=== PATIENT | female | born 1970 | race American Indian/Alaskan Native ===

== ENCOUNTER 2016-10-26 03:50 | Emergency (ER) | payer SELFPAY ==
[2016-10-26] MEDS ORDERED: PEPCID ONE (04:06)
[2016-10-26] MEDS ORDERED: BENADRYL ONE (04:06)
[2016-10-26] MEDS ORDERED: PEPCID PO ONE (04:35)
[2016-10-26] MEDS ORDERED: BENADRYL IM ONE (04:35)
--- NOTE | 2016-10-26 05:41 | Emergency Department Report ---
HPI - General Chief Complaint: Allergic Reaction Time Seen by Provider: 10/26/16 05:17 - HPI HPI: 46-year-old female presents today with a rash to her face and upper extremities and trunk. 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 Positive first tongue swelling at the time. Denies difficulty in breathing or difficulty swallowing. Positive for pruritus and nausea. Also complaining of back pain 4-5 days. Denies injury or trauma. Tried Aleve without relief. Describes her pain as 10 out of 10 constant pain that is worse with movement. Denies bowel or bladder incontinence. Positive for radiation of pain to right leg. Denies numbness, weakness, paresthesias. Denies fever, chills, vomiting, chest pain, shortness of breath, abdominal pain. ED Past Medical Hx - Past Medical History Previous Medical History?: Yes Hx Hypertension: Yes - Surgical History Past Surgical History?: No - Social History Smoking Status: Never Smoker Substance Use Type: Alcohol - Medications Home Medications: Home Medications Medication Instructions Recorded Confirmed Last Taken Type Amoxicillin [Trimox CAP] 500 mg PO Q8H #30 capsule 09/26/13 Unknown Rx Lisinopril [Zestril TAB] 5 mg PO DAILY 09/26/13 09/26/13 09/25/13 History Lisinopril/Hydrochlorothiazide 1 each PO QDAY #30 tablet 09/26/13 Unknown Rx [Zestoretic 10-12.5 mg] Promethazine /Codeine 5 ml PO Q6H PRN #120 ml 09/26/13 Unknown Rx [Phenergan/Codeine 6.25-10 mg/5 ml] predniSONE [Deltasone] 20 mg PO TID #15 tablet 09/26/13 Unknown Rx Ciprofloxacin HCl [Cipro] 500 mg PO Q12H #14 tab 02/28/14 Unknown Rx Lisinopril/Hydrochlorothiazide 1 tab PO QDAY #30 tablet 02/28/14 Unknown Rx [Zestoretic 20-25 mg] Phenazopyridine HCl [Pyridium] 100 mg PO Q8H #9 tablet 02/28/14 Unknown Rx Albuterol Sulfate [Ventolin HFA] 2 puff IH Q4H PRN #1 hfa.aer.ad 07/20/14 Unknown Rx Ciprofloxacin HCl [Cipro] 500 mg PO Q12H #20 tab 07/20/14 Unknown Rx Fluticasone Propionate [Flonase] 1 spray NS Q12H #120 spray.susp 07/20/14 Unknown Rx Promethazine /Codeine 5 ml PO Q6H PRN #120 ml 07/20/14 Unknown Rx [Phenergan/Codeine 6.25-10 mg/5 ml] predniSONE [Deltasone] 20 mg PO TID #15 tab 07/20/14 Unknown Rx Cyclobenzaprine [Flexeril] 10 mg PO TID PRN #14 tablet 10/26/16 Unknown Rx Diphenhydramine HCl [Benadryl 25 mg PO Q6H #20 tablet 10/26/16 Unknown Rx Allergy TAB] Ibuprofen [Motrin 600 MG tab] 600 mg PO Q8H PRN #30 tablet 10/26/16 Unknown Rx Prednisone [predniSONE 5 mg (6-Day 5 mg PO .TAPER #1 tab.ds.pk 10/26/16 Unknown Rx Pack, 21 Tabs)] ED Review of Systems ROS: Stated complaint: ALLERGIC REACTION Other details as noted in HPI Constitutional: denies: chills, fever, malaise Eyes: denies: eye pain ENT: denies: ear pain, throat pain, congestion Respiratory: denies: cough, shortness of breath, wheezing Cardiovascular: denies: chest pain, palpitations Endocrine: no symptoms reported Gastrointestinal: nausea. denies: abdominal pain, vomiting Musculoskeletal: back pain Skin: rash, pruritus Neurological: denies: headache, weakness Physical Exam - Physical Exam Vital Signs: Vital Signs 10/26/16 04:01 Temperature 98.4 F Pulse Rate 106 H Respiratory 22 Rate Blood Pressure 154/98 O2 Sat by Pulse 100 Oximetry Physical Exam: GENERAL: The patient is well-developed and well-nourished. Patient is in NAD. SKIN: Erythematous, blanching, pruritic, wheal like rash noted over neck, trunk and upper extremities. HEAD: Normocephalic. Atraumatic. EYES: PERRL. NOSE: Normal nasal mucosa with no nasal discharge. THROAT: No erythema, swelling or exudates. NECK: Supple, nontender, without lymphadenopathy. No meningitic signs are noted. CHEST/LUNGS: Clear to auscultation throughout. HEART/CARDIOVASCULAR: Regular rate and rhythm. ABDOMEN: Abdomen is soft, nontender.No guarding or rebound tenderness. EXTREMITIES: Peripheral pulses intact. Capillary refill less than 2 seconds. BACK: Full ROM. No midline tenderness. Right-sided paraspinal tenderness of the lumbar region. Positive for tenderness to palpation of right sciatic notch. Negative straight leg raise bilaterally. NEURO: Alert and oriented x 3. Normal gait. ED Course Vital Signs 10/26/16 04:01 Temperature 98.4 F Pulse Rate 106 H Respiratory 22 Rate Blood Pressure 154/98 O2 Sat by Pulse 100 Oximetry ED Medical Decision Making - Lab Data Vital Signs 10/26/16 10/26/16 04:01 05:49 Temperature 98.4 F 98.5 F Pulse Rate 106 H 93 H Respiratory 22 16 Rate Blood Pressure 154/98 Blood Pressure 131/90 [Right] O2 Sat by Pulse 100 98 Oximetry - Medical Decision Making 46-year-old female presents today with a urticarial rash in lower back pain. Patient was given Solu-Medrol, Benadryl and Pepcid and reported symptomatic relief. Patient was also given Flexeril and ibuprofen for her back pain. Patient is in no acute distress at this time. She will be discharged home and is encouraged to follow up with a primary care provider. She will be sent home on Flexeril, ibuprofen, Benadryl and steroid pack and is encouraged to return to the emergency room for any worsening symptoms. Critical care attestation.: If time is entered above; I have spent that time in minutes in the direct care of this critically ill patient, excluding procedure time. ED Disposition Clinical Impression: Urticaria Low back pain Qualifiers: Chronicity: acute Back pain laterality: right Sciatica presence: with sciatica Sciatica laterality: sciatica of right side Qualified Code(s): M54.41 - Lumbago with sciatica, right side Disposition: DISCHARGED TO HOME OR SELFCARE Is pt being admited?: No Does the pt Need Aspirin: No Condition: Stable Instructions: Urticaria (ED) Additional Instructions: Follow-up with primary care provider. Return to the emergency department if symptoms worsen. Prescriptions: Cyclobenzaprine [Flexeril] 10 mg PO TID PRN #14 tablet PRN Reason: Muscle Spasm Diphenhydramine HCl [Benadryl Allergy TAB] 25 mg PO Q6H #20 tablet Ibuprofen [Motrin 600 MG tab] 600 mg PO Q8H PRN #30 tablet PRN Reason: Pain Prednisone [predniSONE 5 mg (6-Day Pack, 21 Tabs)] 5 mg PO .TAPER #1 tab.ds.pk Referrals: PRIMARY CARE,MD [Primary Care Provider] - 3-5 Days [facility] [Outside] - 3-5 Days Forms: Work/School Release Form(ED), Accompanied Note Time of Disposition: 05:51
[2016-10-26] MEDS ORDERED: BENADRYL PO ONE (05:45)
[2016-10-26] MEDS ORDERED: MOTRIN PO ONE (05:45)
[2016-10-26] MEDS ORDERED: FLEXERIL PO ONE (05:45)
[2016-10-26 05:50] VITALS: BP 131/90
== END 2016-10-26 05:51 | disposition home or self-care (01) ==
LOC: ED 03:50
DX: M54.41 Lumbago with sciatica, right side (principal); L50.9 Urticaria, unspecified; I10 Essential (primary) hypertension
CPT/HCPCS: 96372; 99282; J1200; J2930

== ENCOUNTER 2017-09-21 05:46 | Emergency (ER) | payer OTHER ==
[2017-09-21 06:37] VITALS: BP 152/114
--- NOTE | 2017-09-21 06:57 | XRay Report ---
FINAL REPORT EXAM: XR CHEST ROUTINE 2V HISTORY: resp symptoms TECHNIQUE: PA and lateral chest radiographs PRIORS: None. FINDINGS: No mediastinal shift. Cardiac silhouette is not enlarged. No pneumothorax, effusion, or focal pulmonary opacity. No acute skeletal finding. IMPRESSION: No focal pulmonary opacity.
[2017-09-21 07:48] LABS: Basophils % (Auto) 0.4 % (0.0-1.8); Eosinophils # (Auto) 0.2 K/mm3 (0.0-0.4); Eosinophils % (Auto) 6.7 % (0.0-4.3); Hematocrit 38.3 % (30.3-42.9); Hemoglobin 12.8 gm/dl (10.1-14.3); Lymphocytes # (Auto) 1.3 K/mm3 (1.2-5.4); Lymphocytes % (Auto) 40.3 % (13.4-35.0); Mean Corpuscular HGB Conc 34 % (30-34); Mean Corpuscular Hemoglobin 33 pg (28-32); Mean Corpuscular Volume 97 fl (79-97); Monocytes # (Auto) 0.4 K/mm3 (0.0-0.8); Platelet Count 225 K/mm3 (140-440); Red Blood Count 3.96 M/mm3 (3.65-5.03); Red Cell Distribution Width 13.1 % (13.2-15.2)
[2017-09-21 08:00] LABS: Alanine Aminotransferase 21 units/L (7-56); Albumin 3.9 g/dL (3.9-5); BUN/Creatinine Ratio 11; Blood Urea Nitrogen 9 mg/dL (7-17); Calcium 8.9 mg/dL (8.4-10.2); Hemolysis Index 14
--- NOTE | 2017-09-21 21:04 | Emergency Department Report ---
Minor Respiratory - HPI Chief Complaint: Upper Respiratory Infection Stated Complaint: FLU SX Time Seen by Provider: 09/21/17 20:37 Duration: week and a half Pain Location: Facial, Nose, Chest Severity: moderate Minor Respiratory: Yes Rhinorrhea (yellow), Yes Able to Tolerate Fluids, Yes Cough (productive of yellow sputum), Yes Chest Pain (with cough), Yes Fever ( subjective), No Sore Throat, No Ear Pain, No Sick Contacts, No Hemoptysis, No Shortness of Breath Other History: Patient is a 47-year-old female who is presenting with a week and a half of sinus tenderness. Patient has significant postnasal drip that is causing her to have a choking sensation in throat. There is no pain with swallowing. Patient states she has a cough that is occasionally productive of yellow sputum as well. Patient also is complaining of generalized body aches as well. ED Review of Systems ROS: Stated complaint: FLU SX Other details as noted in HPI Comment: Unobtainable due to pts medical conditions ED Past Medical Hx - Past Medical History Previous Medical History?: Yes Hx Hypertension: Yes - Surgical History Past Surgical History?: No - Social History Smoking Status: Never Smoker Substance Use Type: Alcohol - Medications Home Medications: Home Medications Medication Instructions Recorded Confirmed Last Taken Type Amoxicillin [Trimox CAP] 500 mg PO Q8H #30 capsule 09/26/13 Unknown Rx Lisinopril [Zestril TAB] 5 mg PO DAILY 09/26/13 09/26/13 09/25/13 History Lisinopril/Hydrochlorothiazide 1 each PO QDAY #30 tablet 09/26/13 Unknown Rx [Zestoretic 10-12.5 mg] Promethazine /Codeine 5 ml PO Q6H PRN #120 ml 09/26/13 Unknown Rx [Phenergan/Codeine 6.25-10 mg/5 ml] predniSONE [Deltasone] 20 mg PO TID #15 tablet 09/26/13 Unknown Rx Ciprofloxacin HCl [Cipro] 500 mg PO Q12H #14 tab 02/28/14 Unknown Rx Lisinopril/Hydrochlorothiazide 1 tab PO QDAY #30 tablet 02/28/14 Unknown Rx [Zestoretic 20-25 mg] Phenazopyridine HCl [Pyridium] 100 mg PO Q8H #9 tablet 02/28/14 Unknown Rx Albuterol Sulfate [Ventolin HFA] 2 puff IH Q4H PRN #1 hfa.aer.ad 07/20/14 Unknown Rx Ciprofloxacin HCl [Cipro] 500 mg PO Q12H #20 tab 07/20/14 Unknown Rx Fluticasone Propionate [Flonase] 1 spray NS Q12H #120 spray.susp 07/20/14 Unknown Rx Promethazine /Codeine 5 ml PO Q6H PRN #120 ml 07/20/14 Unknown Rx [Phenergan/Codeine 6.25-10 mg/5 ml] predniSONE [Deltasone] 20 mg PO TID #15 tab 07/20/14 Unknown Rx Cyclobenzaprine [Flexeril] 10 mg PO TID PRN #14 tablet 10/26/16 Unknown Rx Diphenhydramine HCl [Benadryl 25 mg PO Q6H #20 tablet 10/26/16 Unknown Rx Allergy TAB] Ibuprofen [Motrin 600 MG tab] 600 mg PO Q8H PRN #30 tablet 10/26/16 Unknown Rx Prednisone [predniSONE 5 mg (6-Day 5 mg PO .TAPER #1 tab.ds.pk 10/26/16 Unknown Rx Pack, 21 Tabs)] ALBUTEROL Inhaler [ProAir HFA 2 puff IH QID PRN #1 inhalation 09/21/17 Unknown Rx Inhaler] Amoxicillin/Potassium Clav 1 each PO BID #14 tablet 09/21/17 Unknown Rx [Augmentin 875-125 Tablet] Benzonatate [Tessalon Perle] 100 mg PO Q8HR #12 capsule 09/21/17 Unknown Rx Fluticasone [Flonase] 1 spray NS QDAY #1 bottle 09/21/17 Unknown Rx HYDROcodone/APAP 5-325 [[place] 1 each PO Q4HR PRN #15 tablet 09/21/17 Unknown Rx 5/325] Minor Respiratory Exam - Exam General: Vital signs noted. No distress. Alert and acting appropriately. HEENT: Yes Moist Mucous Membranes, Yes Frontal Tenderness, Yes Maxillary Tenderness, No Pharyngeal Erythema, No Pharyngeal Exudates, No Rhinorrhea, No Conjuctival Injection Ear: Neither TM Bulge, Neither TM Erythema, Neither EAC Pain, Neither EAC Discharge Neck: Yes Supple, No Adenopathy Lungs: Yes Good Air Exchange, No Wheezes, No Ronchi, No Stridor, No Cough, No Labored Respirations, No Retractions, No Use of Accessory Muscles, No Other Abnormal Lung Sounds Heart: Yes Regular, No Murmur Abdomen: Yes Normal Bowel Sounds, No Tenderness, No Peritoneal Signs Skin: No Rash, No Edema Neurologic: Alert and oriented, no deficits. Musculoskeletal: Unremarkable. ED Course Vital Signs 09/21/17 06:31 Temperature 98.9 F Pulse Rate 100 H Blood Pressure 152/114 O2 Sat by Pulse 98 Oximetry ED Medical Decision Making - Lab Data Result diagrams: 09/21/17 07:20 09/21/17 07:20 Patient was negative for flu a and B - Medical Decision Making Patient is a 47-year-old Female who is presenting with upper respiratory sinus complaints. Patient flew negative laboratory studies were within normal limits chest x-ray was normal patient will be started on Augmentin for sinus infection and given other meds for symptomatic relief Critical care attestation.: If time is entered above; I have spent that time in minutes in the direct care of this critically ill patient, excluding procedure time. ED Disposition Clinical Impression: Acute sinusitis Qualifiers: Sinusitis location: frontal Recurrence: non-recurrent Qualified Code(s): J01.10 - Acute frontal sinusitis, unspecified Disposition: DC-01 TO HOME OR SELFCARE Is pt being admited?: No Does the pt Need Aspirin: No Condition: Stable Instructions: Sinusitis (ED) Prescriptions: ALBUTEROL Inhaler [ProAir HFA Inhaler] 2 puff IH QID PRN #1 inhalation PRN Reason: Shortness Of Breath Amoxicillin/Potassium Clav [Augmentin 875-125 Tablet] 1 each PO BID #14 tablet Benzonatate [Tessalon Perle] 100 mg PO Q8HR #12 capsule Fluticasone [Flonase] 1 spray NS QDAY #1 bottle HYDROcodone/APAP 5-325 [[place] 5/325] 1 each PO Q4HR PRN #15 tablet PRN Reason: Pain Referrals: RONALD COTO MD [Primary Care Provider] - 3-5 Days Forms: Work/School Release Form(ED)
== END 2017-09-21 21:35 | disposition home or self-care (01) ==
LOC: ED 05:46
DX: J01.10 Acute frontal sinusitis, unspecified (principal); J01.00 Acute maxillary sinusitis, unspecified; I10 Essential (primary) hypertension
CPT/HCPCS: 36415; 71046; 80053; 85025; 87400; 99284

== ENCOUNTER 2018-05-06 20:02 | Emergency (ER) | payer OTHER ==
[2018-05-06] MEDS ORDERED: TORADOL IM ONE (23:53)
--- NOTE | 2018-05-06 23:59 | Emergency Department Report ---
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 pain presents for low back pain flare pain described as 4/10 radiating to bilateral legs there's been no new following injury or trauma patient does report flare 2-3 times a year this is pain in similar location and intensity to previous flares is dysuria frequency or urgency hematuria or CVA tenderness there is no numbness no tingling or loss or decrease in bowel or bladder function pain is exacerbated by prolonged sitting standing walking climbing stairs pain is relieved temporarily by ibuprofen by mouth there is no fever chills MD Complaint: back pain Onset/Timin -: month(s) Similar Symptoms Previously: Yes Place: home Radiation: left leg, right leg Severity: moderate Severity scale (0 -10): 4 Quality: aching Consistency: intermittent Improves With: medication Worsens With: sitting upright, walking Context: while lifting, turning/twisting, bending Associated Symptoms: denies: confusion, weakness, chest pain, numbness, difficulty walking, cough, difficulty urinating, diaphoresis, incontinence, fever/chills, constipation, headaches, abdominal pain, loss of appetite, malaise , nausea/vomiting, rash, seizure, shortness of breath, syncope - Related Data Home Medications Medication Instructions Recorded Confirmed Last Taken Lisinopril [Zestril TAB] 5 mg PO DAILY 09/26/13 09/26/13 09/25/13 Previous Rx's Medication Instructions Recorded Last Taken Type Amoxicillin [Trimox CAP] 500 mg PO Q8H #30 capsule 09/26/13 Unknown Rx Lisinopril/Hydrochlorothiazide 1 each PO QDAY #30 tablet 09/26/13 Unknown Rx [Zestoretic 10-12.5 mg] Promethazine /Codeine 5 ml PO Q6H PRN #120 ml 09/26/13 Unknown Rx [Phenergan/Codeine 6.25-10 mg/5 ml] predniSONE [Deltasone] 20 mg PO TID #15 tablet 09/26/13 Unknown Rx Ciprofloxacin HCl [Cipro] 500 mg PO Q12H #14 tab 02/28/14 Unknown Rx Lisinopril/Hydrochlorothiazide 1 tab PO QDAY #30 tablet 02/28/14 Unknown Rx [Zestoretic 20-25 mg] Phenazopyridine HCl [Pyridium] 100 mg PO Q8H #9 tablet 02/28/14 Unknown Rx Albuterol Sulfate [Ventolin HFA] 2 puff IH Q4H PRN #1 hfa.aer.ad 07/20/14 Unknown Rx Ciprofloxacin HCl [Cipro] 500 mg PO Q12H #20 tab 07/20/14 Unknown Rx Fluticasone Propionate [Flonase] 1 spray NS Q12H #120 spray.susp 07/20/14 Unknown Rx Promethazine /Codeine 5 ml PO Q6H PRN #120 ml 07/20/14 Unknown Rx [Phenergan/Codeine 6.25-10 mg/5 ml] predniSONE [Deltasone] 20 mg PO TID #15 tab 07/20/14 Unknown Rx Cyclobenzaprine [Flexeril] 10 mg PO TID PRN #14 tablet 10/26/16 Unknown Rx Diphenhydramine HCl [Benadryl 25 mg PO Q6H #20 tablet 10/26/16 Unknown Rx Allergy TAB] Ibuprofen [Motrin 600 MG tab] 600 mg PO Q8H PRN #30 tablet 10/26/16 Unknown Rx Prednisone [predniSONE 5 mg (6-Day 5 mg PO .TAPER #1 tab.ds.pk 10/26/16 Unknown Rx Pack, 21 Tabs)] ALBUTEROL Inhaler (OR & NICU) 2 puff IH QID PRN #1 inhalation 09/21/17 Unknown Rx [ProAir HFA Inhaler] Amoxicillin/Potassium Clav 1 each PO BID #14 tablet 09/21/17 Unknown Rx [Augmentin 875-125 Tablet] Benzonatate [Tessalon Perle] 100 mg PO Q8HR #12 capsule 09/21/17 Unknown Rx Fluticasone [Flonase] 1 spray NS QDAY #1 bottle 09/21/17 Unknown Rx HYDROcodone/APAP 5-325 [[place] 1 each PO Q4HR PRN #15 tablet 09/21/17 Unknown Rx 5/325] Cyclobenzaprine [Flexeril] 10 mg PO BID PRN #20 tablet 05/07/18 Unknown Rx Menthol/Camphor [[place] 1 applicatio TP TID PRN #1 tube 05/07/18 Unknown Rx Ointment] Naproxen 500 mg PO BID PRN #30 tablet 05/07/18 Unknown Rx Allergies Allergy/AdvReac Type Severity Reaction Status Date / Time No Known Allergies Allergy Unverified 09/26/13 06:13 ED Review of Systems ROS: Stated complaint: LOWER BACK PAIN Other details as noted in HPI Constitutional: denies: chills, fever Eyes: denies: eye pain, eye discharge, vision change ENT: denies: ear pain, throat pain Respiratory: denies: cough, shortness of breath, wheezing Cardiovascular: denies: chest pain, palpitations Endocrine: no symptoms reported Gastrointestinal: denies: abdominal pain, nausea, diarrhea Genitourinary: denies: urgency, dysuria, discharge Musculoskeletal: back pain, arthralgia, myalgia. denies: joint swelling Skin: denies: rash, lesions Neurological: denies: headache, weakness, paresthesias Psychiatric: denies: anxiety, depression Hematological/Lymphatic: denies: easy bleeding, easy bruising ED Past Medical Hx - Past Medical History Hx Hypertension: Yes - Social History Smoking Status: Unknown if ever smoked Substance Use Type: None - Medications Home Medications: Home Medications Medication Instructions Recorded Confirmed Last Taken Type Amoxicillin [Trimox CAP] 500 mg PO Q8H #30 capsule 09/26/13 Unknown Rx Lisinopril [Zestril TAB] 5 mg PO DAILY 09/26/13 09/26/13 09/25/13 History Lisinopril/Hydrochlorothiazide 1 each PO QDAY #30 tablet 09/26/13 Unknown Rx [Zestoretic 10-12.5 mg] Promethazine /Codeine 5 ml PO Q6H PRN #120 ml 09/26/13 Unknown Rx [Phenergan/Codeine 6.25-10 mg/5 ml] predniSONE [Deltasone] 20 mg PO TID #15 tablet 09/26/13 Unknown Rx Ciprofloxacin HCl [Cipro] 500 mg PO Q12H #14 tab 02/28/14 Unknown Rx Lisinopril/Hydrochlorothiazide 1 tab PO QDAY #30 tablet 02/28/14 Unknown Rx [Zestoretic 20-25 mg] Phenazopyridine HCl [Pyridium] 100 mg PO Q8H #9 tablet 02/28/14 Unknown Rx Albuterol Sulfate [Ventolin HFA] 2 puff IH Q4H PRN #1 hfa.aer.ad 07/20/14 Unknown Rx Ciprofloxacin HCl [Cipro] 500 mg PO Q12H #20 tab 07/20/14 Unknown Rx Fluticasone Propionate [Flonase] 1 spray NS Q12H #120 spray.susp 07/20/14 Unknown Rx Promethazine /Codeine 5 ml PO Q6H PRN #120 ml 07/20/14 Unknown Rx [Phenergan/Codeine 6.25-10 mg/5 ml] predniSONE [Deltasone] 20 mg PO TID #15 tab 07/20/14 Unknown Rx Cyclobenzaprine [Flexeril] 10 mg PO TID PRN #14 tablet 10/26/16 Unknown Rx Diphenhydramine HCl [Benadryl 25 mg PO Q6H #20 tablet 10/26/16 Unknown Rx Allergy TAB] Ibuprofen [Motrin 600 MG tab] 600 mg PO Q8H PRN #30 tablet 10/26/16 Unknown Rx Prednisone [predniSONE 5 mg (6-Day 5 mg PO .TAPER #1 tab.ds.pk 10/26/16 Unknown Rx Pack, 21 Tabs)] ALBUTEROL Inhaler (OR & NICU) 2 puff IH QID PRN #1 inhalation 09/21/17 Unknown Rx [ProAir HFA Inhaler] Amoxicillin/Potassium Clav 1 each PO BID #14 tablet 09/21/17 Unknown Rx [Augmentin 875-125 Tablet] Benzonatate [Tessalon Perle] 100 mg PO Q8HR #12 capsule 09/21/17 Unknown Rx Fluticasone [Flonase] 1 spray NS QDAY #1 bottle 09/21/17 Unknown Rx HYDROcodone/APAP 5-325 [[place] 1 each PO Q4HR PRN #15 tablet 09/21/17 Unknown Rx 5/325] Cyclobenzaprine [Flexeril] 10 mg PO BID PRN #20 tablet 05/07/18 Unknown Rx Menthol/Camphor [[place] 1 applicatio TP TID PRN #1 tube 05/07/18 Unknown Rx Ointment] Naproxen 500 mg PO BID PRN #30 tablet 05/07/18 Unknown Rx ED Physical Exam - General Limitations: No Limitations General appearance: alert, in no apparent distress - Head Head exam: Present: atraumatic, normocephalic - Eye Eye exam: Present: normal appearance - ENT ENT exam: Present: mucous membranes moist - Neck Neck exam: Present: normal inspection, full ROM. Absent: tenderness, meningismus, lymphadenopathy, thyromegaly - Respiratory Respiratory exam: Present: normal lung sounds bilaterally. Absent: respiratory distress, wheezes, stridor, chest wall tenderness - Cardiovascular Cardiovascular Exam: Present: regular rate, normal rhythm. Absent: systolic murmur, diastolic murmur, rubs, gallop - GI/Abdominal GI/Abdominal exam: Present: soft, normal bowel sounds. Absent: bruit, hernia - Rectal Rectal exam: Present: deferred - Extremities Exam Extremities exam: Present: normal inspection - Back Exam Back exam: Present: normal inspection, tenderness (mild paraspinus muscle tenderness to deep palpation no posterior vertebral point tenderness no ecchymosis no deformity she third she states), muscle spasm, paraspinal tenderness. Absent: CVA tenderness (R), CVA tenderness (L), vertebral tenderness, rash noted - Expanded Back Exam Expanded Back exam: Absent: saddle anesthesia Back exam: Positive Straight Leg Raise: Left, Right - Neurological Exam Neurological exam: Present: alert, oriented X3, CN II-XII intact, normal gait, reflexes normal - Psychiatric Psychiatric exam: Present: normal affect, normal mood - Skin Skin exam: Present: warm ED Course Vital Signs 05/06/18 05/06/18 20:12 20:30 Temperature 99.3 F 99.3 F Pulse Rate 90 89 Respiratory 18 18 Rate Blood Pressure 161/102 161/102 O2 Sat by Pulse 100 100 Oximetry ED Medical Decision Making - Medical Decision Making Z acute on chronic lumbar pain is been no new fall or injury or trauma there is no numbness weakness or tingling there is no loss of decrease in bowel or bladder function there is no posterior vertebral point tenderness there is mild paraspinous low back muscle tenderness positive straight leg bilaterally patient is ambulatory gait is steady range of motion is intact Critical care attestation.: If time is entered above; I have spent that time in minutes in the direct care of this critically ill patient, excluding procedure time. ED Disposition Clinical Impression: Lumbar spine strain Qualifiers: Encounter type: initial encounter Qualified Code(s): S39.012A - Strain of muscle, fascia and tendon of lower back, initial encounter Chronic low back pain with bilateral sciatica Qualifiers: Back pain laterality: bilateral Qualified Code(s): M54.42 - Lumbago with sciatica, left side; M54.41 - Lumbago with sciatica, right side; G89.29 - Other chronic pain Disposition: TO HOME OR SELFCARE Is pt being admited?: No Does the pt Need Aspirin: No Condition: Good Instructions: Arthralgia (ED), Low Back Strain (ED), Core Strengthening Exercises (GEN) Prescriptions: Cyclobenzaprine [Flexeril] 10 mg PO BID PRN #20 tablet PRN Reason: Muscle Spasm Menthol/Camphor [[place] Ointment] 1 applicatio TP TID PRN #1 tube PRN Reason: pain Naproxen 500 mg PO BID PRN #30 tablet PRN Reason: pain Referrals: PRIMARY CARE, [Primary Care Provider] - 3-5 Days Forms: Work/School Release Form(ED) Time of Disposition: 00:09
[2018-05-07 00:17] VITALS: BP 158/98
== END 2018-05-07 00:17 | disposition home or self-care (01) ==
LOC: ED 20:02
DX: S39.012A Strain of muscle, fascia and tendon of lower back, initial encounter (principal); I10 Essential (primary) hypertension; Z79.899 Other long term (current) drug therapy; X50.1XXA Overexertion from prolonged static or awkward postures, initial encounter; Y93.89 Activity, other specified; Y99.8 Other external cause status; M54.42 Lumbago with sciatica, left side; M54.41 Lumbago with sciatica, right side; G89.29 Other chronic pain; Y92.009 Unspecified place in unspecified non-institutional (private) residence as the place of occurrence of the external cause
CPT/HCPCS: 96372; 99282; J1885